=== PATIENT | female | born 1990 ===

== ENCOUNTER 2021-04-16 08:49 | Outpatient (CLI) | payer SELFPAY ==
[~2021-04-16] VITALS: Ht 147.3 cm; Wt 65.5 kg
[2021-04-16] MEDS ORDERED: PREN-8 PO (13:20)
== END 2021-04-16 13:24 | disposition home or self-care (01) ==
LOC: PREOP 08:49
PROVIDERS: ATTEND Obstetrics & Gynecology
DX: Z01.818 Encounter for other preprocedural examination (principal)

== ENCOUNTER 2021-04-17 09:12 | Inpatient (IN) | payer OTHER ==
[2021-04-17] VITALS (10 sets, daily range): BP systolic 95–131; BP diastolic 57–76
[~2021-04-17] VITALS: Ht 135.5 cm; Wt 64.2 kg
[~2021-04-17 09:12] MED LIST: PREN-8 PO
[2021-04-17 09:46] LABS: BILIRUBIN,URINE NEGATIVE (NEGATIVE); CLARITY,URINE CLEAR; COLOR,URINE YELLOW; GLUCOSE, URINE (UA) NEGATIVE (NEGATIVE); KETONES,URINE TRACE (NEGATIVE); LEUKOCYTE ESTERASE ,URINE NEGATIVE (NEGATIVE); NITRITE,URINE NEGATIVE (NEGATIVE); PROTEIN,URINE NEGATIVE (NEGATIVE)
[2021-04-17 09:59] LABS: BACTERIA,URINE MODERATE /HPF; SQUAMOUS EPITHELIAL CELL,UR 25-50 /HPF; WBC,URINE 0-2 /HPF
[2021-04-17] MEDS: LACTATED RINGERS 1,000 ML IV SCH ×3 (11:00→13:50)
--- NOTE | 2021-04-17 11:56 | History & Physical-OB ---
OB - Chief Complaint & HPI Date/Time Date of Admission: Date of Admission: Date seen by a Provider: Apr 17, 2021 Time Seen by a Provider: 11:51 Chief Complaint/History OB-Reason for Admission/Chief: contractions w/ previous Hx : 3 Hx Para: 2 Expected Date of Delivery: Apr 26, 2021 Gestational Age in Weeks: 38 Gestational Age in Days: 5 Indication for : desires repeat Other reason for admission: 38w5d GA with contraction that started last night. Contractions have been every 5-6 minutes. Denies LOF or VB. Previous x2, vertical skin incision, unknown uterine incision. Allergies and Home Medications Allergies Coded Allergies: No Known Drug Allergies (Unverified , 04/16/21) Patient Home Medication List Home Medication List Reviewed: Yes Vit W-Ca,Fe,FA(<1 mg) ( Formula) 1 Each Tablet, 1 EACH PO DAILY, (Reported) Entered as Reported by: KATHERINE JAVIER on 04/16/21 1320 OB - History Hx of Present Ultrasounds: Normal mid trimester US Obstetrical Complications: None Medical Complications: None Information Induced Hypertension: No Maternal Gestational Diabetes: No Hemorrhage: No Obstetrical History Hx : 3 Hx Para: 2 Hx # Term Pregnancies: 2 Hx Multiple Gestation: No Hx Ectopic : No Hx Stillbirth: No Hx Complication: No Hx Induced Hypertens: No Hx Maternal Gestational Diabet: No Hx Hemorrhage: No Delivery History Hx Section: Yes Patient Past Medical History denies Immunizations Tetanus Booster (TDap): Less than 5yrs (02/17/21) Rubella: immune RPR/VDRL: Negative GBS Status: Negative HBsAG: Negative OB - Admission Exam Physical Exam Abdomen: Gravid Cervical Dilatation: 1cm Membranes: Intact Accelerations: Accelerations Present Decelerations: No Decelerations Contractions on Admission: 6-10 Minutes Apart Intensity: Mild Labs Laboratory Tests Test 04/17/21 09:30 Range/Units Urine Color YELLOW Urine Clarity CLEAR Urine pH 6.0 5-9 Urine Specific [place] 1.015 L 1.016-1.022 Urine Protein NEGATIVE NEGATIVE Urine Glucose (UA) NEGATIVE NEGATIVE Urine Ketones TRACE H NEGATIVE Urine Nitrite NEGATIVE NEGATIVE Urine Bilirubin NEGATIVE NEGATIVE Urine Urobilinogen 0.2 < = 1.0 MG/DL Urine Leukocyte Esterase NEGATIVE NEGATIVE Urine RBC (Auto) 2+ H NEGATIVE Urine RBC 2-5 H /HPF Urine WBC 0-2 /HPF Urine Squamous Epithelial Cells 25-50 H /HPF Urine Crystals NONE /LPF Urine Bacteria MODERATE H /HPF Urine Casts NONE /LPF Urine Mucus NEGATIVE /LPF Urine Culture Indicated NO OB - Assessment/Plan/Diagnosis Assessment Admission Dx @38w5 w/ contraction; hx of previous , vertical skin incision - RCS scheduled form 04/19/21 - IVF, if contraction continue will proceed with RCS today. Discussed with Dr. Larsen who agrees with the plan. Admission Status: Inpatient Order (span 2 midnights) Reason for Inpatient Admission: contractions Copy Copies To 1: POLO KWOK MD, LINDA K DO Apr 17, 2021 11:56
[2021-04-17] MEDS ORDERED: ceFAZolin 2 GM IV Premixed 50 ML IV ONE (12:30)
[2021-04-17] MEDS ORDERED: AZITHROMYCIN INJECTION 500 MG in NS (IVPB) 250 ML IV ONE (12:30)
[2021-04-17] MEDS ORDERED: METOCLOPRAMIDE INJ 10 MG/2 ML (REGLAN) ONE (12:36)
[2021-04-17] MEDS ORDERED: FAMOTIDINE 20MG/2ML IV (PEPCID) ONE (12:36)
[2021-04-17] MEDS ORDERED: CITRIC ACID/SOB CIT (BICITRA) 30 ML UDC ONE (12:36)
[2021-04-17] MEDS ORDERED: ceFAZolin 2 GM IV Premixed 50 ML ONE (12:37)
[2021-04-17] MEDS ORDERED: NS (IVPB) 250 ML ONE (12:37)
[2021-04-17] MEDS ORDERED: AZITHROMYCIN INJECTION 500 MG/5 ML VIAL ONE (12:37)
[2021-04-17] MEDS ORDERED: FAMOTIDINE 20MG/2ML IV (PEPCID) IV ONE (12:45)
[2021-04-17] MEDS ORDERED: METOCLOPRAMIDE INJ 10 MG/2 ML (REGLAN) IV ONE (12:45)
[2021-04-17] MEDS ORDERED: CITRIC ACID/SOB CIT (BICITRA) 30 ML UDC PO ONE (12:45)
[2021-04-17] MEDS ORDERED: LACTATED RINGERS 1,000 ML IV PRN ×2 (12:45)
[2021-04-17 12:47] LABS: BASOPHILS % (AUTO) 0 % (0-10); EOSINOPHILS % (AUTO) 0 % (0-10); HEMATOCRIT 38 % (35-52); HEMOGLOBIN 12.7 g/dL (11.5-16.0); LYMPHOCYTES # (AUTO) 2.1 10^3/uL (1.0-4.0); LYMPHOCYTES % (AUTO) 25 % (12-44); MEAN CORPUSCULAR HEMOGLOBIN 29 pg (25-34); MEAN CORPUSCULAR HGB CONC 33 g/dL (32-36); MEAN CORPUSCULAR VOLUME 87 fL (80-99); MEAN PLATELET VOLUME 11.6 fL (9.0-12.2); MONOCYTES # (AUTO) 0.4 10^3/uL (0.0-1.0); MONOCYTES % (AUTO) 4 % (0-12); NEUTROPHILS % (AUTO) 70 % (42-75); PLATELET COUNT 150 10^3/uL (130-400); WHITE BLOOD COUNT 8.6 10^3/uL (4.3-11.0)
--- NOTE | 2021-04-17 12:47 | Consultation ---
History of Present Illness History of Present Illness Patient Consulted On(ander/time) 04/17/21 12:41 Date Seen by Provider: Apr 17, 2021 Time Seen by Provider: 12:41 Reason for Visit: Consultation for surgical management by repeat section History of Present Illness 38 weeks gestation, history of section, K[place]z as primary language Allergies and Home Medications Allergies Coded Allergies: No Known Drug Allergies (Unverified , 04/16/21) Patient Home Medication List Home Medication List Reviewed: Yes Vit W-Ca,Fe,FA(<1 mg) ( Formula) 1 Each Tablet, 1 EACH PO DAILY, (Reported) Entered as Reported by: KATHERINE JAVIER on 04/16/21 1320 Past Siqculo-Eljbgy-Flvspo Hx Patient Social History Tobacco Use?: No Smoking Status: Never a Smoker Immunizations Up To Date Tetanus Booster (TDap): Less than 5yrs (02/17/21) Seasonal Allergies Seasonal Allergies: No Past Medical History Surgeries: Yes (c/s x2) Respiratory: No Cardiac: No Neurological: No Expected Date of Delivery: Apr 26, 2021 Hx : 3 Hx Para: 2 Genitourinary: No Gastrointestinal: No Musculoskeletal: No Endocrine: No HEENT: No Cancer: No Psychosocial: No Integumentary: No Blood Disorders: No Physical Exam-General Problems Physical Exam Vital Signs Capillary Refill : Assessment/Plan Assessment/Plan Admission Diagnosis/Plan history of section Admission Status: Inpatient Order (span 2 midnights) Reason for Inpatient Admission: Seema Heart is a 31yo at 38w5d with a h/o 2 sections, who presented to complaints of contractions occurring every 5-10 minutes since yesterday evening. While in house, she has had persistent contractions occurring every 6-8 minutes on tocometer despite IV hydration. She has not made cervical change from 1cm, but given her history of 2 section and high risk for uterine rupture, we elected to proceed with repeat csection to prevent uterine rupture. The details of the procedure along with associated risks and alternative treatment plans were reviewed with the patient. # Labs: CBC, type and screen. # Antibiotics: Ancef and Azithromycin # Appropriate consents reviewed. # Anesthesia: Plan for spinal. # SCDs in place. # Dispo: Anticipate surgical management. Clinical Quality Measures Admission Status Admission Dx history of section DVT/VTE Risk/Contraindication: VTE Addressed: Yes VTE Present on Admission: No RFS Level Per Nursing on Admit: 2=Moderate DVT/VTE Prophylaxis Comfirm.Dx Pharmacological not ordered: Mechanical not ordered: Ambulating KO PEREZ MD Apr 17, 2021 12:47
[2021-04-17] MEDS ORDERED: OXYTOCIN PRE-MIX DRIP 1,000 ML IV ONE (13:14)
[2021-04-17] MEDS ORDERED: ONDANSETRON 4 MG/2 ML (SDV) Z0FRAN ONE (13:14)
[2021-04-17] MEDS ORDERED: KETOROLAC 30 MG/ML VIAL ONE (13:14)
[2021-04-17] MEDS ORDERED: fentaNYL INJ 100 MCG/2 ML AMP ONE (13:14)
[2021-04-17] MEDS ORDERED: TRANEXAMIC ACID 100 MG/ML 10 ML INJECTION ONE (13:22)
[2021-04-17] MEDS ORDERED: BUPIVACAINE 0.25% 30 ML (SENSORCAINE) VIAL ONE (13:54)
[2021-04-17] MEDS: KETOROLAC 15 MG/ML VIAL IV SCH ×2 (14:25→20:26)
[2021-04-17] MEDS ORDERED: FLU QUADRIvalent (3YOA+) 60 mcg/0.5 ml 2021-22(AFLURIA) IM ONE (14:30)
[2021-04-17] MEDS ORDERED: ONDANSETRON 4 MG/2 ML (SDV) Z0FRAN IV PRN (15:15)
[2021-04-17] MEDS ORDERED: MEASLES,MUMPS,RUBELLA 1 EA INJ SC SCH (15:15)
[2021-04-17] MEDS ORDERED: METOCLOPRAMIDE INJ 10 MG/2 ML (REGLAN) IV PRN (15:15)
[2021-04-17] MEDS ORDERED: NALOXONE 0.4 MG/ML 1 ML (NARCAN) VIAL IV PRN ×3 (15:15)
[2021-04-17] MEDS ORDERED: diphenhydrAMINE 50 MG/ML INJ (BENADRYL) IV PRN (15:15)
[2021-04-17] MEDS ORDERED: morphine INJ 4 MG/ML 1 ML (VIAL/SYRINGE) IV PRN (15:15)
[2021-04-17] MEDS ORDERED: TETANUS,DIPTH,PERTUSS P/F (BOOSTRIX) 0.5 ML VIAL IM SCH (15:15)
--- NOTE | 2021-04-17 15:23 | Cesarean Section Operative ---
Procedure Procedure Note Pre-operative Diagnosis: Seema Heart is a 31yo /Para 3 / 2,Gestational Age (wks)38.5wga with a h/o csection x2, who presents with regular contractions. Will plan to proceed with repeat section. Post-operative Diagnosis: same Procedure: Repeat low transverse section Physician: KO PEREZ Estimated blood loss: 200 mL Fluids: 3000 mL Urine: 50 mL Disposition: stable Findings: Viable male infant, Apgars 7/9, weight 7#12, intact placenta, 3vc, normal appearing uterus. Fallopian tubes and ovaries were not visualized due to dense adhesions noted between the anterior abdominal cavity and the uterine serosa. Indications:Seema Heart is a 31yo /Para 3 / 2,Gestational Age (wks)38.5 wga with a history of csection x2, who presented with regular contractions occurring every 6-8 minutes despite IV hydration. The decision was made to proceed with repeat section given her contractions that had been present for over 12 hours. Procedure Details: The patient was seen in pre-op and the procedure was discussed with the patient in full, including the risks, benefits, and alternatives. All questions were answered. The patient was taken to the operating room and a time out was performed, verifying patient and procedure. After spinal anesthesia was placed by our anesthesia colleagues, the patient was placed in the dorsal supine with leftward tilt for uterine displacement. Her abdomen was then prepped and draped in the typical sterile fashion. A Pfannenstiel skin incision was made using a scalpel and carried down through the underlying fascia. The fascia was incised in the midline and tented up using Michell clamps. On both the inferior and superior fascia side the rectus muscle was dissected off bluntly and sharply using Dixon scissors. The peritoneum was identified and entered bluntly in the midline. This was then stretched laterally using manual strength. After entering the abdominal cavity, dense adhesions were noted between the superior aspect of the uterus and the fundus and the abdominal wall. Only the lower uterine segment was visualized. The vesicouterine peritoneum was identified and bluntly dissected. A bladder blade was used to retract the bladder. A scalpel was utilized to make a low transverse uterine incision and extended using Bandage scissors. Amniotomy was performed with an Allis clamp with return of clear fluid. The infant's head was grasped and brought to the level of the incision with difficulty. Fundal pressure was applied with little success in delivery. The kiwi vacuum was used to help with delivery of the head without success. After two pulls and two pop offs, the decision was made to extend the skin incision and abdominal muscles with the bovie. Additional fundal pressure was applied and was delivered. Mouth and nares were suctioned with bulb suction. After the umbilical cord was clamped and cut, the infant was handed off to the pediatric staff. A sample of cord blood was then obtained. The placenta was delivered intact via uterine massage. The uterus was exteriorized and cleared of all clots and debris. The uterus was repaired in the uterine cavity due to limited mobility from the abdominal adhesion. The uterine incision was closed using 0 Chromic in a running locked fashion. A second imbricated layer was placed using 0 Chromic in a running fashion as well. The hysterotomy site was examined and hemostasis was observed. One strip of Intercede with applied over the incision for adhesion prophylaxis. The abdomen and the abdominal gutters were cleared of all clots and debris with 800cc of irrigation. A final check of the uterine incision showed it to be hemostatic. The peritoneum was closed using 2-0 Chromic in a running fashion. The fascia was closed with 0 Vicryl in a running fashion. The subcutaneous space was hemostatic, and irrigated. The subcutaneous space was closed with 0 Chromic in a running fashion. The skin was then closed using 4-0 Monocryl in a running subcuticular fashion. The skin edges were reapproximated together with sterri-strips and were hemostatic. A pressure dressing was applied. All sponge, lap and needle counts were correct at the end of the procedure per nursing. Vitals - Labs Vital Signs - I&O Vital Signs Date Time Temp Pulse Resp B/P (MAP) Pulse Ox O2 Delivery O2 Flow Rate FiO2 04/17/21 12:30 36.6 81 18 98 Room Air Labs Laboratory Tests 04/17/21 09:30: Urine Color YELLOW, Urine Clarity CLEAR, Urine pH 6.0, Urine Specific [place] 1.015L, Urine Protein NEGATIVE, Urine Glucose (UA) NEGATIVE, Urine Ketones TRACEH, Urine Nitrite NEGATIVE, Urine Bilirubin NEGATIVE, Urine Urobilinogen 0.2, Urine Leukocyte Esterase NEGATIVE, Urine RBC (Auto) 2+H, Urine RBC 2-5H, Urine WBC 0-2, Urine Squamous Epithelial Cells 25-50H, Urine Crystals NONE, Urine Bacteria MODERATEH, Urine Casts NONE, Urine Mucus NEGATIVE, Urine Culture Indicated NO 04/17/21 12:35: White Blood Count 8.6, Red Blood Count 4.43, Hemoglobin 12.7, Hematocrit 38, Mean Corpuscular Volume 87, Mean Corpuscular Hemoglobin 29, Mean Corpuscular Hemoglobin Concent 33, Red Cell Distribution Width 13.5, Platelet Count 150, Mean Platelet Volume 11.6, Immature Granulocyte % (Auto) 0, Neutrophils (%) (Auto) 70, Lymphocytes (%) (Auto) 25, Monocytes (%) (Auto) 4, Eosinophils (%) (Auto) 0, Basophils (%) (Auto) 0, Neutrophils # (Auto) 6.0, Lymphocytes # (Auto) 2.1, Monocytes # (Auto) 0.4, Eosinophils # (Auto) 0.0, Basophils # (Auto) 0.0, Immature Granulocyte # (Auto) 0.0 KO PEREZ MD Apr 17, 2021 15:23
[2021-04-17] MEDS: DOCUSATE SODIUM 100 MG (COLACE) CAP PO SCH (20:26)
[2021-04-17] MEDS: SIMETHICONE 80 MG (MYLICON) CHEW PO SCH (21:01)
[2021-04-17] MEDS: ACETAMINOPHEN 500 MG TAB (TYLENOL) PO SCH (21:57)
[2021-04-17] MEDS ORDERED: CATHETER FLUSH 10 ML SYR IV SCH (22:00)
[2021-04-18] VITALS: BP 119/67
[2021-04-18] MEDS: KETOROLAC 15 MG/ML VIAL IV SCH (02:19)
[2021-04-18] MEDS ORDERED: IBUPROFEN 800 MG (MOTRIN) TAB PO ONE (02:25)
[2021-04-18] MEDS: SIMETHICONE 80 MG (MYLICON) CHEW PO SCH (02:30)
[2021-04-18 05:51] VITALS: BP 101/64
[2021-04-18] MEDS: ACETAMINOPHEN 500 MG TAB (TYLENOL) PO SCH ×3 (06:09→23:02)
[2021-04-18 06:16] LABS: EOSINOPHILS % (AUTO) 0 % (0-10); HEMOGLOBIN 11.3 g/dL (11.5-16.0); MEAN PLATELET VOLUME 11.5 fL (9.0-12.2)
[2021-04-18 06:18] LABS: BASOPHILS % (AUTO) 0 % (0-10); HEMATOCRIT 33 % (35-52); LYMPHOCYTES # (AUTO) 2.2 10^3/uL (1.0-4.0); LYMPHOCYTES % (AUTO) 23 % (12-44); MEAN CORPUSCULAR HEMOGLOBIN 29 pg (25-34); MEAN CORPUSCULAR HGB CONC 34 g/dL (32-36); MEAN CORPUSCULAR VOLUME 85 fL (80-99); MONOCYTES # (AUTO) 0.6 10^3/uL (0.0-1.0); MONOCYTES % (AUTO) 6 % (0-12); NEUTROPHILS # (AUTO) 6.8 10^3/uL (1.8-7.8); NEUTROPHILS % (AUTO) 71 % (42-75); PLATELET COUNT 136 10^3/uL (130-400); WHITE BLOOD COUNT 9.6 10^3/uL (4.3-11.0)
[2021-04-18] MEDS ORDERED: IBUPROFEN 600 MG (MOTRIN) TAB PO ONE ×2 (09:08→15:02)
[2021-04-18 09:13] VITALS: BP 110/57
[2021-04-18] MEDS: DOCUSATE SODIUM 100 MG (COLACE) CAP PO SCH ×2 (09:16→20:21)
[2021-04-18] MEDS: IBUPROFEN 600 MG (MOTRIN) TAB PO SCH ×3 (09:16→20:21)
--- NOTE | 2021-04-18 11:16 | Postpartum Progress Note ---
Post Op Post-operative Day #1 Subjective: Patient is doing well but complains of intermittent pain in left thigh that she rates a 5/10. She states that the pain is worse with standing for a prolonged period of time. She is ambulating in the room. She has voided and is passing flatus. Tolerating a regular diet without nausea or vomiting. Normal lochia. Incisional pain is well controlled with oral pain medications. Bottlefeeding. Objective: Vital Signs 04/18/21 09:13 Temp 36.9 Pulse 61 Resp 18 B/P (MAP) 110/57 (74) Pulse Ox 98 O2 Delivery Room Air Physical Exam: General - Alert and oriented, no apparent distress Abdomen - Soft, BS normoactive, appropriately tender to palpation, non- distended, fundus firm below the umbilicus Incision - Pfannenstiel incision is clean, dry and intact with sterri-strips in place; no erythema or induration, no drainage Extremities - no edema noted, left thigh is non-tender to palpation, negative Jennifer's bilaterally Assessment: Post-operative day #1, status post repeat low transverse section due to h/o csection x2. Recovering well, hemodynamically stable Plan: # Routine post-operative care. # Viable male . Declined circumcision. Bottlefeeding. # Left thigh pain: Will obtain dopplers of lower extremities with emphasis on left thigh. Low clinical concern for DVT. - Flexeril ordered for musculoskeletal pain. # Pain: Ibuprofen 600mg q6hrs scheduled, tylenol 1000mg q8 hrs scheduled, 5mg oxycodone q4hrs PRN. # Diet: Regular diet. Colace, pepcid and simethicone ordered. # VTE prophylaxis: SCDs. Encourage ambulation. # Preop hgb 12.7 --> 11.3. Ferrous sulfate supplementation. # Dispo: Plan for discharge home in AM. Vitals - Labs Vital Signs - I&O Vital Signs Date Time Temp Pulse Resp B/P (MAP) Pulse Ox O2 Delivery O2 Flow Rate FiO2 04/18/21 09:13 36.9 61 18 110/57 (74) 98 Room Air 04/18/21 05:51 36.3 61 18 101/64 (76) Room Air 04/18/21 00:00 36.7 62 18 119/67 (84) 98 Room Air 04/17/21 21:10 37.0 75 18 127/69 (88) 100 04/17/21 18:30 37.0 66 18 113/61 (78) 96 Room Air 04/17/21 15:56 36.6 61 18 131/60 (83) 98 Room Air 04/17/21 12:30 36.6 81 18 98 Room Air I & O 04/18/21 07:00 Intake Total 1300 ml Output Total 400 ml Balance 900 ml Labs Laboratory Tests 04/17/21 12:35: White Blood Count 8.6, Red Blood Count 4.43, Hemoglobin 12.7, Hematocrit 38, M quentin Corpuscular Volume 87, Mean Corpuscular Hemoglobin 29, Mean Corpuscular Hemoglobin Concent 33, Red Cell Distribution Width 13.5, Platelet Count 150, Mean Platelet Volume 11.6, Immature Granulocyte % (Auto) 0, Neutrophils (%) (Auto) 70, Lymphocytes (%) (Auto) 25, Monocytes (%) (Auto) 4, Eosinophils (%) (Auto) 0, Basophils (%) (Auto) 0, Neutrophils # (Auto) 6.0, Lymphocytes # (Auto) 2.1, Monocytes # (Auto) 0.4, Eosinophils # (Auto) 0.0, Basophils # (Auto) 0.0, Immature Granulocyte # (Auto) 0.0 04/18/21 05:46: White Blood Count 9.6, Red Blood Count 3.90, Hemoglobin 11.3L, Hematocrit 33L, Mean Corpuscular Volume 85, Mean Corpuscular Hemoglobin 29, Mean Corpuscular Hemoglobin Concent 34, Red Cell Distribution Width 13.6, Platelet Count 136, Mean Platelet Volume 11.5, Immature Granulocyte % (Auto) 0, Neutrophils (%) (Auto) 71, Lymphocytes (%) (Auto) 23, Monocytes (%) (Auto) 6, Eosinophils (%) (Auto) 0, Basophils (%) (Auto) 0, Neutrophils # (Auto) 6.8, Lymphocytes # (Auto) 2.2, Monocytes # (Auto) 0.6, Eosinophils # (Auto) 0.0, Basophils # (Auto) 0.0, Immature Granulocyte # (Auto) 0.0, Percent Immature Platelet Fraction 5.4 KO PEREZ MD Apr 18, 2021 11:16
[2021-04-18] MEDS ORDERED: SIMETHICONE 80 MG (MYLICON) CHEW PO ONE (13:00)
[2021-04-18 15:07] VITALS: BP 112/58
[2021-04-18] MEDS: CYCLOBENZAPRINE 10 MG (FLEXERIL) TAB PO SCH ×2 (15:08→20:22)
--- NOTE | 2021-04-18 17:19 | Anesthesia-Regional Post-Op ---
Regional Patient Condition Mental Status: Alert, Oriented x3 Circulation: Same as Pre-Op Headache: Absent Sensation: Full Recovery Motor Block: Absent Post Op Complications Complications None Follow Up Care/Instructions Patient Instructions None needed. Anesthesia/Patient Condition Patient is doing well, no complaints, stable vital signs, no apparent adverse anesthesia problems. No complications reported per nursing. READING,MARIE Ayoub CRNA Apr 18, 2021 17:19
[2021-04-18 20:38] VITALS: BP 107/57
[2021-04-18] MEDS ORDERED: FAMOTIDINE 20 MG (PEPCID) TABLET PO SCH (21:00)
[2021-04-19 02:53] VITALS: BP 104/62
[2021-04-19] MEDS: IBUPROFEN 600 MG (MOTRIN) TAB PO SCH ×2 (02:53→13:03)
[2021-04-19] MEDS: ACETAMINOPHEN 500 MG TAB (TYLENOL) PO SCH (06:17)
--- NOTE | 2021-04-19 06:59 | Postpartum Progress Note ---
Post Op Post-operative Day #2 Subjective: Patient is without complaints. Ambulating, voiding after llamas removed. Tolerating a regular diet without nausea or vomiting. Normal lochia. Pain is well controlled with oral pain medications. Passing flatus. Bottlefeeding. Interested in discharge home this morning. Objective: Vital Signs 04/18/21 04/19/21 20:38 02:53 Temp 36.3 Pulse 65 Resp 18 B/P (MAP) 104/62 (76) Pulse Ox 98 O2 Delivery Room Air Physical Exam: General - Alert and oriented, no apparent distress Abdomen - Soft, appropriately tender to palpation, non-distended, fundus firm at umbilicus Incision - Pfannenstiel incision is clean, dry and intact with sterri-strips; no erythema or induration, no drainage Extremities - no edema noted, left thigh is non-tender to palpation, negative Jennifer's bilaterally Assessment: Post-operative day # 2, status post repeat low transverse section. Recovering well, hemodynamically stable Plan: # Routine post-operative care. # Viable male infant. Declined circumcision. Bottlefeeding. # Left thigh pain: Pain has resolved with no physical exam findings concerning for DVT. - Flexeril ordered for musculoskeletal pain. # Pain: Ibuprofen 600mg q6hrs scheduled, tylenol 1000mg q8 hrs scheduled, 5mg oxycodone q4hrs PRN. # Diet: Regular diet. Colace, pepcid and simethicone ordered. # VTE prophylaxis: SCDs. Encourage ambulation. # Preop hgb 12.7 --> 11.3. Ferrous sulfate supplementation. # Dispo: Plan for discharge home today with plans for follow-up in 1 week for an incision check and 6 weeks for a examination. Vitals - Labs Vital Signs - I&O Vital Signs Date Time Temp Pulse Resp B/P (MAP) Pulse Ox O2 Delivery O2 Flow Rate FiO2 04/19/21 02:53 36.3 65 18 104/62 (76) 04/18/21 20:38 36.8 68 20 107/57 (74) 98 Room Air 04/18/21 15:07 36.3 66 20 112/58 (76) 100 Room Air 04/18/21 09:13 36.9 61 18 110/57 (74) 98 Room Air KO PEREZ MD Apr 19, 2021 06:59
--- NOTE | 2021-04-19 07:02 | Discharge Inst-Simple/Standard ---
Discharge Inst-Standard Reconcile Patient Problems Problems Reviewed?: Yes Discharge Medications New, Converted or Re-Newed RX: Transmitted to Pharmacy Patient Instructions/Follow Up Plan of Care/Instructions/FU: Patient will return for an incision check 1 week after discharge. She will then follow-up in 6 weeks for a examination. Activity as Tolerated: Yes Discharge Diet: No Restrictions KO PEREZ MD Apr 19, 2021 07:02
[2021-04-19] MEDS ORDERED: ONDA4TAB11 PO (07:05)
[2021-04-19] MEDS ORDERED: DOCU100C37 PO (07:05)
[2021-04-19] MEDS ORDERED: ACET-93 PO (07:05)
[2021-04-19] MEDS ORDERED: SMT80CT PO (07:05)
[2021-04-19] MEDS ORDERED: OXC5T PO (07:05)
[2021-04-19] MEDS ORDERED: IBUP-844 PO (07:05)
--- NOTE | 2021-04-19 07:10 | Short Stay Summary ---
Discharge Summary Hospital Course Was the Problem List Reviewed?: Yes Final Diagnosis: course following section Hospital Course Date of Admission: Apr 17, 2021 at 12:24 Admission Diagnosis : Family Physician/Provider: Robi Coates MD Date of Discharge: 04/19/21 Discharge Diagnosis: care following section Hospital Course: Seema Heart is a 31 yo female with a h/o csection x2, who presented in labor at 38.5wga. The decision was made to move forward with repeat low transverse section for which she tolerated well. She delivered a viable male infant and was bottlefeeding during her hospital stay. Her course was initially complicated by complaints of left thigh pain that resolved with more ambulation in the room and on the unit. Otherwise her course was unremarkable. She was discharged home on POD#2 in stable condition with plans for follow-up incision check in 1 week and exam in 6 weeks. Labs and Pending Lab Test: Home Meds Active Ondansetron Odt (Ondansetron) 4 Mg Tab.rapdis 4 Mg PO Q6H PRN 7 Days Docusate Sodium 100 Mg Capsule 100 Mg PO BID Mi-Acid (Simethicone) 80 Mg Tab.chew 80 Mg PO PCHS 7 Days Acetaminophen 500 Mg Tablet 1,000 Mg PO Q8HR 7 Days Oxyir Tablet (Oxycodone HCl) 5 Mg Tab 5 Mg PO Q4HR PRN 7 Days Ibu (Ibuprofen) 600 Mg Tablet 600 Mg PO Q6HR 7 Days Reported Formula ( Vit W-Ca,Fe,FA(<1 mg)) 1 Each Tablet 1 Each PO DAILY Assessment/Pt Instructions Discharge home with plans for incision check in 1 week and exam in 6 weeks. Discharge Instructions Discharge Diet: No Restrictions Activity as Tolerated: Yes Discharge Physical Examination Allergies: Coded Allergies: No Known Drug Allergies (Unverified , 04/16/21) Discharge Summary Date of Admission Apr 17, 2021 at 12:24 Date of Discharge Apr 19 2021 Discharge Date: Apr 19, 2021 Discharge Time: 1200 Admission Diagnosis care following section Discharge Diagnosis care following section (1) care following delivery Clinical Quality Measures DVT/VTE Risk/Contraindication: VTE Addressed: Yes VTE Present on Admission: No RFS Level Per Nursing on Admit: 2=Moderate DVT/VTE Prophylaxis Comfirm.Dx Pharmacological not ordered: Mechanical not ordered: Ambulating KO PEREZ MD Apr 19, 2021 07:10
[2021-04-19 09:45] VITALS: BP 111/60
[2021-04-19] MEDS: DOCUSATE SODIUM 100 MG (COLACE) CAP PO SCH (13:03)
== END 2021-04-19 15:07 | disposition home or self-care (01) | DRG 788 ==
LOC: WSo 09:12 → LDRP 09:12 → WSo 12:24 → LDRP 12:24
PROVIDERS: ADMIT Obstetrics & Gynecology; ATTEND Obstetrics & Gynecology
PROC: 10D00Z1 Extraction of Products of Conception, Low, Open Approach (ICD-10-PCS; principal; 2021-04-17 13:24)
DX: O34.211 Maternal care for low transverse scar from previous cesarean delivery (principal); Z37.0 Single live birth; Z3A.38 38 weeks gestation of pregnancy
CPT/HCPCS: 36415; 81000; 85025; 86850; 86900; 86901; 94664; 99212